=== PATIENT | male | born 2000 | race Caucasian/White ===

== ENCOUNTER 2022-10-30 13:37 | Emergency (ER) | payer MEDICAID ==
[~2022-10-30] VITALS: Ht 180.3 cm; Wt 117.9 kg
[2022-10-30] MEDS ORDERED: AMOX-430 PO (14:47)
--- NOTE | 2022-10-30 14:55 | NUR ---
PT WAS EVALUATED BY DR DOYLE. PT WAS D/C'd TO HOME. D/C INSTRUCTIONS GIVEN TO THE PT BY DR DOYLE.
[2022-10-30 14:58] VITALS: BP 142/69
== END 2022-10-30 14:58 | disposition home or self-care (01) ==
LOC: ER 13:37
DX: S60.512A Abrasion of left hand, initial encounter (principal); W53.21XA Bitten by squirrel, initial encounter; Y93.01 Activity, walking, marching and hiking; Y92.830 Public park as the place of occurrence of the external cause
CPT/HCPCS: A4663